=== PATIENT | female | born 1945 | race Caucasian/White ===

== ENCOUNTER 2018-10-20 02:53 | Emergency (ER) | payer MEDICARE, OTHER ==
[~2018-10-20] VITALS: Ht 167.6 cm; Wt 81.8 kg
[~2018-10-20 02:53] MED LIST: LOTRIL PO
[2018-10-20 02:55] VITALS: Ht 167.6 cm; Wt 81.8 kg
[2018-10-20] MEDS ORDERED: LORAZEPAM 0.5 MG TAB PO ONE (03:30)
[2018-10-20] MEDS ORDERED: LORAZEPAM 2 MG INJ IV ONE (04:00)
[2018-10-20] MEDS ORDERED: ONDANSETRON 4 MG INJ IV STA (05:22)
[2018-10-20] MEDS ORDERED: ONDANSETRON 4 MG INJ ONE (05:24)
[2018-10-20] MEDS ORDERED: SOD CHLORIDE 0.9% 1,000 ML IV ONE (05:30)
[2018-10-20 08:30] VITALS: BP 140/78; PULSE 72; RESP 16
== END 2018-10-20 09:00 | disposition home or self-care (01) ==
LOC: MERGE 02:53 → FTE 02:53 → E/R 09:00
DX: S02.2XXA Fracture of nasal bones, initial encounter for closed fracture (principal); F41.9 Anxiety disorder, unspecified; R04.0 Epistaxis; R40.2142 Coma scale, eyes open, spontaneous, at arrival to emergency department; R40.2252 Coma scale, best verbal response, oriented, at arrival to emergency department; R40.2362 Coma scale, best motor response, obeys commands, at arrival to emergency department; I10 Essential (primary) hypertension; W19.XXXA Unspecified fall, initial encounter; Y92.9 Unspecified place or not applicable
CPT/HCPCS: 70450; 70486; 71045; 72125; 80053; 84484; 85025; 85610; 93005; 96374; 96375; 99285; J2060; J2405; J7030